=== PATIENT | female | born 1955 | race Caucasian/White ===

== ENCOUNTER → 2021-06-27 | Outpatient (CLI) | payer MEDICARE ==
[2021-06-27 15:28] LABS: CALCIUM 8.7 mg/dL (8.5-10.1); CREATININE 0.7 mg/dL (0.6-1.0); PHOSPHORUS 3.5 mg/dL (2.5-4.9)
== END ==
LOC: LAB 14:37
DX: E21.0 Primary hyperparathyroidism (principal)